=== PATIENT | male | born 1930 | race Caucasian/White ===

== ENCOUNTER 2018-12-29 18:10 | Emergency (ER) | payer MEDICARE, BC ==
[2018-12-29] MEDS ORDERED: ACETAMINOPHEN 500 MG TABLET PO ONE (18:47)
[2018-12-29 18:53] LABS: ABSOLUTE NEUTROPHIL COUNT 5.37; BASO % 0.2 % (0-6); EOS % 1.3 % (0-6); HEMATOCRIT 43.8 % (42.0-52.0); HEMOGLOBIN 14.7 gm/dl (14.0-18.0); LYMPH % 9.5 % (16-45); MEAN CELL VOLUME 95.8 fl (81-97); MEAN CORPUSCULAR HEMOGLOBIN 32.2 pg (27-33); MEAN CORPUSCULAR HGB CONC 33.6 g/dl (32-36); MEAN PLATELET VOLUME 9.5 fl (7.4-10.4); MONO % 1.3 % (0-9); PLATELET COUNT 156 K/uL (130-400); RED BLOOD COUNT 4.57 M/uL (4.40-5.70); RED CELL DISTRIBUTION WIDTH 12.9 % (11.5-14.5); WHITE BLOOD COUNT W/O DIFF 6.1 K/uL (4.2-12.2)
--- NOTE | 2018-12-29 18:55 | Emergency Department Record ---
History of Present Illness - General Chief complaint: Weakness Stated complaint: NOT WELL,WEAKNESS Time Seen by Provider: 12/29/18 18:32 Source: Patient Mode of Arrival: Ambulatory Limitations: No limitations - History of Present Illness Initial comments: pt has felt weak and dizzy today w chills. he has a bad tooth. he has no other complaints MD Complaint: Generalized weakness Onset/Timin -: Days(s) Location: Generalized Improves with: None Worsens with: None Associated Symptoms: Denies other symptoms - [place] Coma Scale Eye Response: (4) Open spontaneously Motor Response: (6) Obeys commands Verbal Response: (5) Oriented Qiana Total: 15 - Related Data Home Medications Medication Instructions Recorded Confirmed Last Taken Metformin HCl [Metformin HCl ER] 500 mg PO BID 12/29/18 12/29/18 12/29/18 Multivitamin [Multi-Vitamin Daily] 1 each PO DAILY 12/29/18 12/29/18 12/29/18 Simvastatin [Zocor] 20 mg PO DAILY 12/29/18 12/29/18 12/29/18 Previous Rx's Medication Instructions Recorded Amoxicillin/Potassium Clav 1 tab PO BID #14 tab 12/29/18 [Augmentin 875-125 Tablet] Allergies Allergy/AdvReac Type Severity Reaction Status Date / Time No Known Drug Allergies Allergy Verified 12/29/18 18:17 Travel Screening - Travel/Exposure Within Last 30 Days Have you traveled within the last 30 days?: No - Travel/Exposure Within Last Year Have you traveled outside the [place] in the last year?: No - Additonal Travel Details Have you been exposed to anyone with a communicable illness?: No - Travel Symptoms Symptom Screening: None Review of Systems Reviewed: No additional complaints except as noted below Constitutional: Reports: As per HPI, Chills. Denies: Fever, Malaise, Night sweats, Weakness, Weight change Eyes: Reports: As per HPI. Denies: Eye discharge, Eye pain, Photophobia, Vision change ENT: Reports: As per HPI, Dental pain. Denies: Congestion, Ear pain, Epistaxis, Hearing loss, Throat pain Respiratory: Reports: As per HPI. Denies: Cough, Dyspnea, Hemoptysis, Stridor, Wheezes Cardiovascular: Reports: As per HPI. Denies: Arrhythmia, Chest pain, Dyspnea on exertion, Edema, Murmurs, Orthopnea, Palpitations, Paroxysmal nocturnal dyspnea, Rheumatic Fever, Syncope Endocrine: Reports: As per HPI. Denies: Fatigue, Heat or cold intolerance, Polydipsia, Polyuria Gastrointestinal: Reports: As per HPI. Denies: Abdominal pain, Constipation, Diarrhea, Hematemesis, Hematochezia, Melena, Nausea, Vomiting Genitourinary: Reports: As per HPI. Denies: Dysuria, Frequency, Hematuria, Incontinence, Retention, Testicular pain, Testicular mass, Urgency Musculoskeletal: Reports: As per HPI. Denies: Arthralgia, Back pain, Gout, Joint swelling, Myalgia, Neck pain Skin: Reports: As per HPI. Denies: Bruising, Change in color, Change in hair/n ails, Lesions, Pruritus, Rash Neurological: Reports: As per HPI. Denies: Abnormal gait, Confusion, Headache, Numbness, Paresthesias, Seizure, Tingling, Tremors, Vertigo, Weakness Psychiatric: Reports: As per HPI. Denies: Anxiety, Auditory hallucinations, Depression, Homicidal thoughts, Suicidal thoughts, Visual hallucinations Hematological/Lymphatic: Reports: As per HPI. Denies: Anemia, Blood Clots, Easy bleeding, Easy bruising, Swollen glands Past Medical History - SOCIAL HISTORY Smoking Status: Never smoker Alcohol Use: None Drug Use: None - RESPIRATORY Hx Respiratory Disorders: No - CARDIOVASCULAR Hx Cardio Disorders: Yes Comment:: high cholesterol - NEURO Hx Neuro Disorders: No - GI Hx GI Disorders: No - Hx Genitourinary Disorders: Yes Hx Prostate Problems: Yes - ENDOCRINE Hx Endocrine Disorders: Yes Hx Diabetes: Yes - MUSCULOSKELETAL Hx Musculoskeletal Disorders: No - PSYCH Hx Psych Problems: No - HEMATOLOGY/ONCOLOGY Hx Hematology/Oncology Disorders: No Family Medical History Any Significant Family History?: No Physical Exam - General General Appearance: Alert, Oriented x3, Cooperative, Mild distress - Head Head exam: Normal inspection - Eye Eye exam: Normal appearance, PERRL, EOMI Pupils: Normal accommodation - ENT ENT exam: Normal exam, Mucous membranes moist, Normal external ear exam, Normal orophraynx Ear exam: Normal external inspection. negative: External canal tenderness Nasal Exam: Normal inspection. negative: Discharge, Sinus tenderness Mouth exam: Normal external inspection, Tongue normal Teeth exam: Normal inspection. negative: Dental caries Throat exam: Normal inspection. negative: Tonsillar erythema, Tonsillar exudate - Neck Neck exam: Normal inspection, Full ROM. negative: Tenderness - Respiratory Respiratory exam: Normal lung sounds bilaterally. negative: Respiratory di stress - Cardiovascular Cardiovascular Exam: Regular rate, Normal rhythm, Normal heart sounds - GI/Abdominal GI/Abdominal exam: Soft, Normal bowel sounds. negative: Tenderness - Rectal Rectal exam: Deferred - exam: Deferred - Extremities Extremities exam: Normal inspection, Full ROM, Normal capillary refill. negative: Tenderness - Back Back exam: Reports: Normal inspection, Full ROM. Denies: Muscle spasm, Rash noted, Tenderness - Neurological Neurological exam: Alert, CN II-XII intact, Normal gait, Oriented X3 - Psychiatric Psychiatric exam: Normal affect, Normal mood - Skin Skin exam: Dry, Intact, Normal color, Warm Course Vital Signs 12/29/18 18:21 Temperature 99.6 F Pulse Rate 71 Respiratory 20 Rate Blood Pressure 142/65 Pulse Ox 96 Medical Decision Making - Lab Data Result diagrams: 12/29/18 18:25 12/29/18 18:25 Disposition Disposition: Discharge Clinical Impression: Abscess, dental Disposition: Home, Self-Care Condition: (1) Good Instructions: Dental Abscess (ED) Additional Instructions: follow up with family doctor and with dentist tomorrow. return sooner if worse. sleep elevated. tylenol for pain Prescriptions: Amoxicillin/Potassium Clav [Augmentin 875-125 Tablet] 1 tab PO BID #14 tab Forms: Patient Portal Access Quality - Quality Measures Quality Measures: N/A - Blood Pressure Screening Does Patient Have Any of the Following: No Blood Pressure Classification: Hypertensive Reading Systolic Measurement: 142 Diastolic Measurement: 65 Screening for High Blood Pressure: < First Hypertensive BP, F/U Documented > [G8950] First Hypertensive Follow-up Interventions: Follow-up with rescreen GT 1 day and LT 4 weeks.
[2018-12-29 18:57] LABS: BLOOD UREA NITROGEN 13 mg/dL (8-23); CREATININE 0.8 mg/dL (0.7-1.2); EST GLOMERULAR FILTRATION RATE > 60 mL/min
[2018-12-29 18:58] LABS: TOTAL PROTEIN 7.5 g/dL (6.6-8.7)
[2018-12-29 19:00] LABS: GLUCOSE,RANDOM 159 mg/dL (74-109)
[2018-12-29 19:02] LABS: ALT/SGPT 18 U/L (<41); AST/SGOT 21 U/L (10.0-50.0)
[2018-12-29 19:03] LABS: ALB/GLOB RATIO 1.5 (1.1-1.8); ALBUMIN 4.5 g/dL (4.0-5.0); ALKALINE PHOSPHATASE 58 U/L (40-129)
[2018-12-29 19:04] LABS: URINE APPEARANCE CLEAR; URINE BILIRUBIN NEGATIVE (NEGATIVE); URINE BLOOD TRACE-I (NEGATIVE); URINE COLOR YELLOW; URINE GLUCOSE (UA) NEGATIVE (NEGATIVE); URINE KETONE 15 mg/dL (NEGATIVE); URINE LEUKOCYTE ESTERASE NEGATIVE (NEGATIVE); URINE NITRITE NEGATIVE (NEGATIVE); URINE PROTEIN NEGATIVE (NEGATIVE); URINE UROBILINOGEN 0.2 E.U./dL (0.20 - 1.00)
[2018-12-29 19:07] LABS: URINE BACTERIA NONE SEEN; URINE EPITHELIAL CELLS 0 - 2 (FEW); URINE WBC 0 - 2 (0-2/hpf)
[2018-12-29] MEDS ORDERED: AMPICILLIN SODIUM/SULBACTAM NA 3 G in 0.9 % SODIUM CHLORIDE 100ML 100 ML IVPB ONE (20:30)
--- NOTE | 2018-12-30 14:34 | RADIOLOGY REPORT ---
EXAM: CHEST, TWO VIEWS HISTORY: SHORT OF BREATH AND WEAKNESS. TECHNIQUE: Two views of the chest were obtained. Comparison: None. FINDINGS: The heart and mediastinum have normal size. Interstitial prominence of both lungs without evidence of focal infiltrate, pleural effusion, pulmonary nodule or pneumothorax. The interstitial process appears chronic. No sign of any edema. Skeletal structures show no acute findings. Pacemaker leads appear intact. IMPRESSION: NO SIGN OF ACUTE CHEST PATHOLOGY. 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 JOB NUMBER: [id number] [facility]
== END 2018-12-29 21:23 | disposition home or self-care (01) ==
LOC: ER 18:10 → EDBD 18:10 → ER 21:23
DX: K04.7 Periapical abscess without sinus (principal); E78.00 Pure hypercholesterolemia, unspecified; R06.02 Shortness of breath; E11.9 Type 2 diabetes mellitus without complications; Z79.84 Long term (current) use of oral hypoglycemic drugs
CPT/HCPCS: 99284; 96365; 99283; 80053; 36416; 81001; 82948; 85027; 71046; J0295

== ENCOUNTER 2019-01-26 17:08 | Observation (INO) | payer MEDICARE, BC ==
[2019-01-26 18:36] LABS: ABSOLUTE NEUTROPHIL COUNT 10.08; HEMATOCRIT 38.6 % (42.0-52.0); HEMOGLOBIN 12.8 gm/dl (14.0-18.0); MEAN CELL VOLUME 96.7 fl (81-97); MEAN CORPUSCULAR HGB CONC 33.2 g/dl (32-36); MEAN PLATELET VOLUME 9.5 fl (7.4-10.4); PLATELET COUNT 148 K/uL (130-400); RED BLOOD COUNT 3.99 M/uL (4.40-5.70); RED CELL DISTRIBUTION WIDTH 13.3 % (11.5-14.5); WHITE BLOOD COUNT W/O DIFF 11.4 K/uL (4.2-12.2)
[2019-01-26 18:44] LABS: PLATELET ESTIMATE NORMAL (NORMAL)
--- NOTE | 2019-01-26 18:46 | Emergency Department Record ---
History of Present Illness - General Chief Complaint: Dizziness Stated Complaint: DIZZY Time Seen by Provider: 01/26/19 18:01 Source: Patient, Family, EMS Mode of Arrival: EMS Limitations: No limitations - History of Present Illness Initial Comments: pt states he has been constipated. he states he drank a bottle of mag citrate and then felt funny and slipped to the floor. his states he was out of it but came to over the next few minutes. he states he feels normal now MD Complaint: Dizziness, Lightheadedness Timing: Unsure Description: Lightheadedness History of Same: No History of Trauma: No Improves With: Nothing Worsens With: Nothing Associated Symptoms: Denies other symptoms - [place] Coma Scale Eye Response: (4) Open spontaneously Motor Response: (6) Obeys commands Verbal Response: (5) Oriented Q[place] Total: 15 - Symptoms of Stroke Symptoms of stroke: Dizziness - Related Data Allergies Allergy/AdvReac Type Severity Reaction Status Date / Time No Known Drug Allergies Allergy Verified 01/26/19 17:21 Travel Screening - Travel/Exposure Within Last 30 Days Have you traveled within the last 30 days?: No Review of Systems Reviewed: No additional complaints except as noted below Constitutional: Reports: As per HPI. Denies: Chills, Fever, Malaise, Night sweats, Weakness, Weight change Eyes: Reports: As per HPI. Denies: Eye discharge, Eye pain, Photophobia, Vision change ENT: Reports: As per HPI. Denies: Congestion, Dental pain, Ear pain, Epistaxis, Hearing loss, Throat pain Respiratory: Reports: As per HPI. Denies: Cough, Dyspnea, Hemoptysis, Stridor, Wheezes Cardiovascular: Reports: As per HPI. Denies: Arrhythmia, Chest pain, Dyspnea on exertion, Edema, Murmurs, Orthopnea, Palpitations, Paroxysmal nocturnal dyspnea, Rheumatic Fever, Syncope Endocrine: Reports: As per HPI. Denies: Fatigue, Heat or cold intolerance, Polydipsia, Polyuria Gastrointestinal: Reports: As per HPI. Denies: Abdominal pain, Constipation, Diarrhea, Hematemesis, Hematochezia, Melena, Nausea, Vomiting Genitourinary: Reports: As per HPI. Denies: Dysuria, Frequency, Hematuria, Incontinence, Retention, Testicular pain, Testicular mass, Urgency Musculoskeletal: Reports: As per HPI. Denies: Arthralgia, Back pain, Gout, Joint swelling, Myalgia, Neck pain Skin: Reports: As per HPI. Denies: Bruising, Change in color, Change in hair/nails, Lesions, Pruritus, Rash Neurological: Reports: As per HPI. Denies: Abnormal gait, Confusion, Headache, Numbness, Paresthesias, Seizure, Tingling, Tremors, Vertigo, Weakness Psychiatric: Reports: As per HPI. Denies: Anxiety, Auditory hallucinations, Depression, Homicidal thoughts, Suicidal thoughts, Visual hallucinations Hematological/Lymphatic: Reports: As per HPI. Denies: Anemia, Blood Clots, Easy bleeding, Easy bruising, Swollen glands Past Medical History - SOCIAL HISTORY Smoking Status: Never smoker Alcohol Use: None Drug Use: None - RESPIRATORY Hx Respiratory Disorders: No - CARDIOVASCULAR Hx Cardio Disorders: Yes Comment:: high cholesterol - NEURO Hx Neuro Disorders: No - GI Hx GI Disorders: No - Hx Genitourinary Disorders: Yes Hx Prostate Problems: Yes - ENDOCRINE Hx Endocrine Disorders: Yes Hx Diabetes: Yes - MUSCULOSKELETAL Hx Musculoskeletal Disorders: No - PSYCH Hx Psych Problems: No - HEMATOLOGY/ONCOLOGY Hx Hematology/Oncology Disorders: No Family Medical History Any Significant Family History?: No Physical Exam - General General Appearance: Alert, Oriented x3, Cooperative, No acute distress - Head Head exam: Normal inspection - Eye Eye exam: Normal appearance, PERRL, EOMI Pupils: Normal accommodation - ENT ENT exam: Normal exam, Mucous membranes moist, Normal external ear exam, Normal orophraynx Ear exam: Normal external inspection. negative: External canal tenderness Nasal Exam: Normal inspection. negative: Discharge, Sinus tenderness Mouth exam: Normal external inspection, Tongue normal Teeth exam: Normal inspection. negative: Dental caries Throat exam: Normal inspection. negative: Tonsillar erythema, Tonsillar exudate - Neck Neck exam: Normal inspection, Full ROM. negative: Tenderness - Respiratory Respiratory exam: Normal lung sounds bilaterally. negative: Respiratory distress - Cardiovascular Cardiovascular Exam: Regular rate, Normal rhythm, Normal heart sounds - GI/Abdominal GI/Abdominal exam: Soft, Normal bowel sounds. negative: Tenderness - Rectal Rectal exam: Deferred - exam: Deferred - Extremities Extremities exam: Normal inspection, Full ROM, Normal capillary refill. negative: Tenderness - Back Back exam: Reports: Normal inspection, Full ROM. Denies: Muscle spasm, Rash noted, Tenderness - Neurological Neurological exam: Alert, CN II-XII intact, Normal gait, Oriented X3 - Psychiatric Psychiatric exam: Normal affect, Normal mood - Skin Skin exam: Dry, Intact, Normal color, Warm Course Vital Signs 01/26/19 17:15 Temperature 97.7 F Pulse Rate 65 Respiratory 20 Rate Blood Pressure 124/59 Pulse Ox 100 Medical Decision Making - Lab Data Result diagrams: 01/26/19 18:30 01/26/19 18:30 Lab Results 01/26/19 Range/Units 18:30 WBC 11.4 (4.2-12.2) K/uL RBC 3.99 L (4.40-5.70) M/uL Hgb 12.8 L (14.0-18.0) gm/dl Hct 38.6 L (42.0-52.0) % MCV 96.7 (81-97) fl MCH 32.0 (27-33) pg MCHC 33.2 (32-36) g/dl RDW 13.3 (11.5-14.5) % Plt Count 148 (130-400) K/uL MPV 9.5 (7.4-10.4) fl Eosinophils % Not Reportable Basophils % Not Reportable Absolute Neutrophils 10.08 Disposition Disposition: Admit Clinical Impression: Syncope Qualifiers: Syncope type: unspecified Qualified Code(s): R55 - Syncope and collapse Constipation Qualifiers: Constipation type: unspecified constipation type Qualified Code(s): K59.00 - Constipation, unspecified Disposition: Still a Patient at [facility] Decision to Admit: Admit from ER Decision to Admit Date: 01/26/19 Decision to Admit Time: 19:23 Forms: Patient Portal Access Quality - Quality Measures Quality Measures: N/A - Blood Pressure Screening Does Patient Have Any of the Following: No Blood Pressure Classification: Pre-Hypertensive BP Reading Systolic Measurement: 124 Diastolic Measurement: 59 Screening for High Blood Pressure: < Pre-Hypertensive BP, F/U Documented > [G8950] Pre-Hypertensive Follow-up Interventions: Follow-up with rescreen every year.
[2019-01-26 18:50] LABS: BLOOD UREA NITROGEN 19 mg/dL (8-23); CREATININE 0.7 mg/dL (0.7-1.2); EST GLOMERULAR FILTRATION RATE > 60 mL/min
[2019-01-26 18:51] LABS: TOTAL PROTEIN 6.5 g/dL (6.6-8.7)
[2019-01-26 18:53] LABS: GLUCOSE,RANDOM 147 mg/dL (74-109)
[2019-01-26 18:56] LABS: ALKALINE PHOSPHATASE 51 U/L (40-129); ALT/SGPT 17 U/L (<41); AST/SGOT 18 U/L (10.0-50.0)
[2019-01-26 18:58] LABS: BILIRUBIN,DIRECT < 0.2 mg/dL (0-0.3); CKMB 3.1 ng/mL (<6.73)
[2019-01-26] MEDS ORDERED: METFORMIN ER HCL 500 MG TAB.ER.24H PO SCH (22:08)
[2019-01-26] MEDS ORDERED: SIMVASTATIN 20 MG TABLET PO SCH (22:08)
[2019-01-26] MEDS ORDERED: ACETAMINOPHEN 500 MG TABLET PO PRN (22:08)
[2019-01-26] MEDS: DOCUSATE SODIUM 100 MG CAPSULE PO SCH (22:38)
--- NOTE | 2019-01-27 07:31 | CT SCAN REPORT ---
EXAM: HEAD CT WITHOUT CONTRAST HISTORY: SYNCOPE. TECHNIQUE: Noncontrast head CT was obtained. Comparison: None. FINDINGS: There is prominence of the ventricles and subarachnoid spaces compatible with atrophy. There is no mass or mass effect. No intra or extraaxial hemorrhage. No CT evidence for large acute territorial infarct. Areas of white matter hypodensity are present likely the result of chronic small vessel ischemic change. There is no fracture or acute osseous abnormality. There is mucosal thickening in the right maxillary sinus. The sinuses otherwise appear clear. No air fluid levels. The orbits are unremarkable. IMPRESSION: 1. NO MASS, HEMORRHAGE, OR ACUTE INTRACRANIAL PROCESS. 2. 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 3. CHRONIC MUCOSAL THICKENING RIGHT MAXILLARY SINUS. JOB NUMBER: [id number] [facility]
[2019-01-27] MEDS: DOCUSATE SODIUM 100 MG CAPSULE PO SCH (09:48)
[2019-01-27] MEDS ORDERED: METFORMIN ER HCL 500 MG TAB.ER.24H PO SCH (10:00)
--- NOTE | 2019-01-27 12:55 | Discharge Note ---
VTE H&P Assessment - Risk for VTE Risk for VTE: Yes Risk Level: Very Low Risk Assessment Date: 01/27/19 Risk Assessment Time: 12:55 VTE Orders Placed or Will Be Placed: No VTE Reason for No Prophylaxis: Not Indicated (increase activity ) Discharge Medications - Discharge Medications Home Medications: Ambulatory Orders Metformin HCl [Metformin HCl ER] 1,000 mg PO DAILY 12/29/18 [Last Taken 01/26/19] Lisinopril 2.5 mg PO DAILY 01/27/19 [Last Taken Unknown] Simvastatin 40 mg PO QHS 01/27/19 [Last Taken Unknown] Discharge Note - Date Date of Discharge Note: 01/27/19 Forms: Patient Portal Access
--- NOTE | 2019-01-27 12:58 | Discharge Note ---
VTE H&P Assessment - Risk for VTE Risk for VTE: Yes Risk Level: Very Low Risk Assessment Date: 01/27/19 Risk Assessment Time: 12:55 VTE Orders Placed or Will Be Placed: No VTE Reason for No Prophylaxis: Not Indicated (increase activity ) Discharge Medications - Discharge Medications Home Medications: Ambulatory Orders Metformin HCl [Metformin HCl ER] 1,000 mg PO DAILY 12/29/18 [Last Taken 01/26/19] Lisinopril 2.5 mg PO DAILY 01/27/19 [Last Taken Unknown] Simvastatin 40 mg PO QHS 01/27/19 [Last Taken Unknown] Discharge Note - Date Date of Discharge Note: 01/27/19 Disposition: Home, Self-Care Condition: (1) Good Additional Instructions: follow up with Dr. Jeronimo in one week Use miralax 17 gm daily to prevent constipation Also use colace 100 mg daily drink lots of water increase fiber in diet Forms: Patient Portal Access
--- NOTE | 2019-01-27 15:10 | Discharge Summary ---
DATE: 01/27/2019 DISCHARGE DIAGNOSES: 1. Near vasovagal syncope. 2. Rectal and abdominal pain with constipation. 3. Citrate of magnesia use. 4. History of pacemaker. 5. History of hypertension. 6. History of diabetes mellitus. 7. History of hypercholesterolemia. ATTENDING PHYSICIAN: James Castro DO REASON FOR HOSPITALIZATION: This 88-year-old male was lightheaded, having abdominal and rectal pain with constipation. Took a bottle of citrate of magnesia. He was pushing very hard to have a bowel movement. He got dizzy and lightheaded. He sat down on the floor. His thought he passed out. EMS was called. He was brought to the emergency department for evaluation. D-dimer slightly elevated. CT of the chest was negative. SIGNIFICANT FINDINGS: CT of the chest negative for PE or any acute findings. EKG showing a paced rhythm. Normal sinus rhythm. CK-MB was negative. The rest of the labs unremarkable. The patient refused to have a second set of labs drawn the next day. Talked to him about the risk involved and he accepts the risk. THERAPY PROVIDED: IV fluids and the citrate of magnesia that he took continued to work throughout the night and he has multiple bowel movements and cleaned himself out. HOSPITAL COURSE: Improved and walking around the room without any discomfort. Wants to go home. DISCHARGE INSTRUCTIONS: Follow up with Dr. Jeronimo next week. Continue his home medications. Use MiraLax 17 g once a day or Colace 100 mg daily for constipation problems. MTDD
--- NOTE | 2019-01-27 15:10 | History and Physical Report ---
CHIEF COMPLAINT: Near syncope episode. Possible syncope. HISTORY OF PRESENT ILLNESS: This 88-year-old denies having a syncopal episode but he states that he was having a lot of abdominal and rectal pain from constipation. He took a bottle of citrate of magnesia and went into the bathroom. He was straining and he felt lightheaded and dizzy, so he sat down on the floor. His walked in and thought he passed out. She called EMS. He was transferred to the hospital, evaluated by Dr. Gracia, admitted to the hospital for syncope and for cardiac monitoring and further evaluation. The patient denied passing out, just felt dizzy from straining to have a bowel movement. He had an elevated D-dimer in the emergency department but he refused a CTA last night. I talked him into having that. It was negative for PE. No acute process. Some healed granulomatous disease in the CTA of the chest. EKG showing a paced rhythm, atrial paced rhythm and normal sinus rhythm in spots. CK-MB was negative. He refused to have any blood drawn today. I told him there was some risk involved with not doing a second set of enzymes and he we could miss a small MN and he could . He said he did not want to have any more blood done. He had no chest pain, no dyspnea, and he feels normal. PAST MEDICAL HISTORY: He has a pacemaker placed in 2003 in [place], [place]. 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 He has hypercholesterolemia, diabetes mellitus, and hypertension. PAST SURGICAL HISTORY: Pacemaker, prostate surgery for benign prostatic hyperplasia. MEDICATIONS: 1. Lisinopril 2.5 mg daily. 2. Simvastatin 40 mg at h.s. 3. Metformin 1000 mg daily. ALLERGIES: No known allergies. FAMILY/PSYCHOSOCIAL HISTORY: Never smoked. No alcohol or drug use. No significant family history. REVIEW OF SYSTEMS: HEENT: No upper respiratory infection symptoms, cough, cold, or congestion. Cardiovascular: No chest pain, palpitations, or arrhythmia. Respiratory: No cough, cold, or congestion. Gastrointestinal: He has had some constipation problems. Second episode of bad constipation. Had a similar episode where he almost passed out last time too. He denies any vomiting, blood in the stools, or blood in the urine. He did have abdominal pain and rectal pain. Genitourinary: No dysuria, hematuria, frequency, or burning on urination. Musculoskeletal: No joint or bone abnormalities. Neurological: No CVA, paralysis, or paresthesias. Endocrine: He has diabetes mellitus but no hypothyroidism. Integument: No rash, ulcers, change in moles, or yellow skin. PHYSICAL EXAMINATION: VITALS: Height 5 feet 8 inches, weight 155 pounds. Temperature 98.1, pulse 63, blood pressure 108/56, respiratory rate 18, pulse ox 98% on room air. HEENT: Pupils are equal, round, and reactive to light and accommodation. Extraocular muscles are intact. Throat is clear. Nose is clear. Tympanic membranes are gómez. NECK: Supple. No jugular venous distention. No hepatojugular reflux. No carotid bruits. Thyroid is smooth. CARDIOVASCULAR: Regular rate and rhythm without murmurs, clicks, rubs, or gallops. RESPIRATORY: Clear to auscultation and percussion. ABDOMEN: Soft, nontender. No hepatosplenomegaly, no masses, no tenderness. Bowel sounds are active. No bruits. EXTREMITIES: No pitting edema. No cyanosis, no clubbing. Full range of motion. Peripheral pulses are good. BREASTS: Normal male breasts. RECTAL: Exam deferred. He had multiple bowel movements in the hospital here after he got admitted and he feels he is all totally cleaned out. GENITALIA: Deferred. NEUROLOGIC: Cranial nerves II-XII intact. No gross defects. Sensation normal, strength normal. Deep tendon reflexes equal bilaterally with Babinski negative. MENTAL STATUS: Alert and oriented x3. IMPRESSION: 1. Near vasovagal syncope. 2. Rectal and abdominal pain with constipation. 3. Constipation. 4. Use of citrate of magnesia. 5. History of pacemaker. 6. History of diabetes mellitus. 7. History of hypertension. 8. Hypercholesterolemia. PLAN: Discharge the patient. He is doing much better. Recommend using MiraLax 17 g daily to keep himself regular or Colace 100 mg daily, which is a stool softener. MTDD
--- NOTE | 2019-01-28 22:32 | CT ANGIOGRAM REPORT ---
EXAM: CT ANGIOGRAM CHEST CTA w contrast HISTORY: DIZZINESS AND CONSTIPATION FOR FOUR DAYS. ELEVATED D-DIMER. TECHNIQUE: Routine CTA examination of the chest is performed utilizing a pulmonary embolus protocol with 66 mL of Omnipaque-350 utilized. Maximum- intensity projection reformatted images are generated in the coronal and sagittal planes and reviewed. COMPARISON: Two-view chest radiographic examination dated 12/29/2018. FINDINGS: Opacification of the pulmonary arteries is satisfactory for interpretation. No luminal filling defect is noted in the outflow tract, main arteries, lobar arteries, nor proximal segmental arteries to suggest acute pulmonary embolic disease. A dual-lead transvenous cardiac stimulator remains in place via the left subclavian approach with lead tips in the right atrium and right ventricle, respectively. The heart is borderline enlarged. No evidence of acute right heart strain. There is diffuse atherosclerosis of the thoracic aorta without focal aneurysmal dilatation. No mediastinal or hilar mass/lymphadenopathy is seen. There are small calcified lymph nodes in the subcarinal portion of the mediastinum as well as the right hilum consistent with healed granulomatous disease. The central airways are clear. Mild dependent atelectasis is demonstrated within each lung base. Minor biapical lung scarring is also noted. There is a tiny ill-defined nodule in the lateral aspect of the right upper lobe as seen on series 3, image #30. This measures 3 mm in maximum diameter. A few additional tiny nodules are noted in the subpleural anterolateral aspect of the right upper lobe measuring 1-2 mm. There is minor linear scarring vs. atelectasis in the posterolateral left upper lobe. A calcified granuloma is noted in the posterior basal segment of the right lower lobe measuring approximately 5 mm. No pleural or pericardial effusion. The adrenal glands are not enlarged. Healed granulomatous disease is demonstrated within the spleen. No lytic or blastic bone lesion identified. There are bridging marginal osteophytes scattered throughout the thoracic spine. IMPRESSION: 1. NO CTA EVIDENCE OF ACUTE PULMONARY EMBOLIC DISEASE. 2. NO CT EVIDENCE OF AN ACUTE INTRATHORACIC PROCESS. 3. HEALED GRANULOMATOUS DISEASE SCATTERED WITHIN THE MEDIASTINUM, RIGHT HEMITHORAX, AND SPLEEN. 4. THERE ARE SEVERAL TINY NONCALCIFIED SUBPLEURAL NODULES IN THE RIGHT UPPER LOBE. IN A LOW-RISK PATIENT, NO ROUTINE FOLLOW-UP IS NECESSARY. IF THERE IS A HISTORY OF SMOKING, FOLLOW-UP CT CHEST IN 12 MONTHS COULD BE PERFORMED. JOB NUMBER: [id number] [facility]
== END 2019-01-27 13:25 | disposition home or self-care (01) ==
LOC: ER 17:08 → MEDSURG 21:41
PROVIDERS: ADMIT Emergency Medicine; ATTEND Emergency Medicine
DX: R55 Syncope and collapse (principal); K59.00 Constipation, unspecified; E11.9 Type 2 diabetes mellitus without complications; E78.00 Pure hypercholesterolemia, unspecified; Z95.0 Presence of cardiac pacemaker
CPT/HCPCS: 80076; 82553; 80048; 85379; 85027; 71275; 70450; 93005; 93010; G0378 ×2; Q9967; 99236; 99285